=== PATIENT | male | born 1940 | race Caucasian/White ===

== ENCOUNTER 2016-12-25 06:27 | Day surgery (SDC) | payer MEDICARE, OTHER ==
--- NOTE | 2016-12-19 09:58 | PREOP HISTORY & PHYSICAL ---
HISTORY: 76 year old male post recent cataract surgery OS. The patient notes worsening vision OD and is here today for a brief pre-operative evaluation for planned cataract surgery OD. He is having some "double vision in the new glasses" and the vision seems very blurry in the right eye. He is also having much glare and haloes around lights when driving at night. Patient had his new glasses made via an online optical. PAST OCULAR HISTORY: Pseudophakic OS, Cataract OD, Glasses OCULAR MEDICATIONS: None PAST MEDICAL HISTORY: Chronic GERD (K21.9) H/O prostate cancer (Z85.46)10/2013 Dr. Danny Fu at [facility] , status post prostatectomy HTN (401.9) (I10) Obstructive lung disease (J44.9) Rhinitis (J31.0) suspect allergic but did occure with travel ALLERGIES: No Known Drug Allergies FAMILY HISTORY: Father . @ 90, history of glaucoma SOCIAL HISTORY: Alcohol use Does not drink alcohol. Tobacco use Former smoker. Quit 1961 1-2 [employer] Vehicle Driving Yes. CURRENT MEDICATIONS: AmLODIPine Besylate (5MG Tablet, 1 Oral daily, Taken starting 08/11/2012) Active. Aspirin (81MG Tablet, 1 Oral daily, Taken starting 11/12/2011) Active. Benadryl Allergy (25MG Capsule, 1 Oral as needed) Active. Colace (100MG Capsule, 1 Oral daily) Active. Glucosamine Sulfate (1000MG Tablet, 1 Oral daily) Active. (with Vitamin D) Maxzide-25 (37.5-25MG Tablet, 1 Oral daily in AM, Taken starting 11/12/2011) Active. (entry data) Ocuvite Adult 50+ (Oral daily) Active. Tylenol Extra Strength (500MG Tablet, Oral as needed) Active. Vitamin D (1000UNIT Tablet, 1 Oral as desired) Active. Zantac (150MG Tablet, Oral as needed) Active. DiphenhydrAMINE HCl (25MG Capsule, Oral) Active. RaNITidine HCl (150MG Tablet, Oral) Active. Triamterene-HCTZ (37.5-25MG Capsule, Oral) Active. Medications Reconciled PAST SURGICAL HISTORY: Tonsillectomy 1949 Gynacomastia Repair 1965 Prostatectomy For prostate carcinoma 2013 Basal Cell Carcinoma Excision Left eyebrow 2012 PHYSICAL EXAMINATION: Vitals (Krystian hWitfield M.D.; 09/02/2016 4:29 PM) 09/02/2016 4:29 PM Pulse: 72 (Regular) P.OX: 91% (Room air) BP: 142/83 (Sitting, Left Wrist, Small) Chest and Lung Exam Auscultation Breath sounds - Clear and Symmetric throughout. Cardiovascular Auscultation Rhythm - Regular. Heart Sounds - Normal heart sounds. Murmurs & Other Heart Sounds - Auscultation of the heart reveals - No Murmurs. OCULAR EXAMINATION: VISUAL ACUITY: with correction (Glasses) OD 20/50+ OS 20/20 WORKING Rx: OD -2.25 Sphere OS [place] ADD + 2.50 (Bifocal) MANIFEST REFRACTION: OD -2.275 Sphere (20/40) OS [place] (20/20) CONFRONTATIONAL VISUAL BUTLER: Normal to counting fingers in four quadrants OU PUPILS: Round and equal OU with no afferent pupillary defect seen EXTERNAL: Normal OU EXTRA-OCULAR MUSCLES: Versions full OU - orthotropic at both distance and near SLIT LAMP EXAM: LIDS/LASHES: Normal OU CONJUNCTIVA: Quiet OU CORNEA: Clear OU AC: Deep and quiet OU IRIS: Normal OU PUPILS: Round OU LENS: 3+ central nuclear sclerosis with 2+ central posterior sub-capsular cataract changes OD. Central PC IOL with clear posterior capsule OS ANTERIOR VITREOUS: No anterior vitreous cells or pigment seen OU TONOMETRY: TIME: 8:46 AM OD: 16 mm Hg OS: 14 mm Hg DILATING gtt: Phenylephrine 2.5% + Tropicamide 1% FUNDUS: C/D: 0.2 OU DISCS: Sharp with clear disc margins OU MACULA: Mild central pigmentary disturbance with a few scattered hard drusen OS > OD VESSELS: Normal OU PERIPHERY: Significant vitreous syneresis OU with no retinal breaks seen KERATOMETRY: OD 41.06 / 41.45 x 106 OS 41.18 / 41.85 x 097 AXIAL LENGTH: OD 25.92 +/- 0.014 OS 25.71 +/- 0.011 IMPRESSION: Cataract, nuclear sclerotic, right eye Story: Visually significant cataract OD - discussed with patient today who is very bothered by his current vision and would like to consider cataract surgery. We discussed the refractive goals today and the patient would like to be corrected to a near-plano spherical equivalent postoperatively OD. 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 PLAN: Schedule the patient for a pre-operative evaluation for cataract extraction with intra-ocular lens OD in December. Lid soaks and scrubs BID OU (pre-operative blepharitis protocol and antibiotic ointment instructions handout given to patient today). Erythromycin ophthalmic ointment q hs OU as blepharitis prophylaxis (patient has this at home). BIOMETRY, OPHTHALMIC, BY PARTIAL COHERENCE INTERFEROMETRY (37128) Started Erythromycin 5MG/GM, Apply 1/8 inch Ointment to the eyelashes of both eyes at bedtime, 1 Tube, 09/02/2016, Ref. x1. Started Zymaxid 0.5%, 1 drop(s) four times daily to the operated eye, after surgery, 1 Bottle, 09/02/2016, Ref. x1. Started PrednisoLONE Acetate 1%, 1 drop(s) four times daily in the operated eye , after surgery, 10 Milliliter, 09/02/2016, Ref. x1. MTDD
[~2016-12-25 06:27] MED LIST: APRACLONIDINE 0.5% OPHTH 5 ML BTL OP ONE; BUPIVACAINE HCL/PF 0.75% 10 ML VIAL OP ONE; CIPROFLOXACIN 0.3% OPHTH 50 DROP/5 ML BTL OP SCH; CYCLOPENTOLATE HCL 1% OPHTH 2 ML BTL OP SCH; FLURBIPROFEN 0.03% OPHTH 2.5 ML BTL OP SCH; PHENYLEPHRINE 2.5% OPHTH 10 DROP/2 ML BTL OP SCH
[2016-12-25 06:47] VITALS: TEMP 97.5
[2016-12-25] MEDS ORDERED: FLURBIPROFEN 0.03% OPHTH 2.5 ML BTL ONE (06:47)
[2016-12-25] MEDS ORDERED: BUPIVACAINE HCL/PF 0.75% 10 ML VIAL ONE (06:47)
[2016-12-25] MEDS ORDERED: APRACLONIDINE 0.5% OPHTH 5 ML BTL ONE (06:47)
[2016-12-25] MEDS ORDERED: CYCLOPENTOLATE HCL 1% OPHTH 2 ML BTL ONE (06:47)
[2016-12-25] MEDS ORDERED: CIPROFLOXACIN 0.3% OPHTH 50 DROP/5 ML BTL ONE (06:48)
[2016-12-25] MEDS ORDERED: PHENYLEPHRINE 2.5% OPHTH 10 DROP/2 ML BTL ONE (06:48)
[2016-12-25] MEDS ORDERED: BACITRACIN OPHTH OINTMENT 3.5 GM TUBE ONE (07:14)
[2016-12-25] MEDS ORDERED: KETOROLAC 0.45% OPHTH 1 DROP/EACH DROPERETTE ONE (07:15)
[2016-12-25] MEDS ORDERED: LIDOCAINE HCL/PF 1% 30 ML VIAL ONE (07:15)
[2016-12-25] MEDS ORDERED: CHONDROITIN/HYALURONIDATE OPHT 0.5 ML KIT ONE (07:15)
[2016-12-25 08:29] VITALS: BP 126/71; PULSE 71; RESP 16; O2SAT 95
--- NOTE | 2016-12-25 13:23 | OPERATIVE REPORT ---
DATE OF SURGERY: 12/25/2016. SURGEON: Krystian Whitfield MD ANESTHESIA: Topical with monitored anesthesia care. PREOPERATIVE DIAGNOSIS: Cataract, right eye. POSTOPERATIVE DIAGNOSIS: Cataract, right eye. OPERATION PERFORMED: Cataract extraction by phacoemulsification with posterior chamber intraocular lens, right eye. COMPLICATIONS: None. PROCEDURE: The patient was brought to the operating room where he was placed in the supine position. After the instillation of additional tetracaine drops in the right eye, the eye was prepped and draped in the usual sterile ophthalmic manner. A lid speculum was placed in the right eye, after which an inferior paracentesis was fashioned with 1-mm steel keratome, and 0.2 mL of 1% nonpreserved lidocaine was injected intracamerally followed by Viscoat. A temporal clear corneal incision of 3-mm width was fashioned with a steel keratome. A continuous curvilinear capsulorrhexis was fashioned with a bent- needle cystitome and Utrata forceps under Viscoat. Hydrodissection was carried out with balanced salt solution on an intraocular cannula. The nucleus was noted to rotate freely. Phacoemulsification proceeded in a two-handed fashion utilizing typical phacoemulsification times and crane, as the nucleus was noted to be 2+ dense. Residual cortical material was then removed with the automated irrigation-aspiration handpiece. The anterior chamber and capsular bag were then reinflated with Provisc, after which an AcrySof model SA60AT foldable acrylic intraocular lens of 16.5 diopters power was placed into the capsular bag. The haptics were rotated with a Y hook and the intraocular lens was noted to center well. Residual viscoelastic was then removed with the automated irrigation-aspiration handpiece , after which the wound edges were hydrated with balanced salt solution. The intraocular pressure at the conclusion of the procedure was physiologic, and there was no evidence of wound leakage upon testing with a Weck Fanta sponge. Acular drops and bacitracin ointment were placed in the right eye, and the patient was brought to the recovery area, having tolerated the procedure well. He was given full postoperative instructions. CALLIE
== END 2016-12-25 08:35 | disposition home or self-care (01) ==
LOC: SDS 06:27
PROVIDERS: ATTEND Ophthalmology
DX: H25.11 Age-related nuclear cataract, right eye (principal); H35.30 Unspecified macular degeneration; K21.9 Gastro-esophageal reflux disease without esophagitis; I10 Essential (primary) hypertension; J31.0 Chronic rhinitis; Z85.46 Personal history of malignant neoplasm of prostate; Z79.899 Other long term (current) drug therapy
CPT/HCPCS: J0171